=== PATIENT | female | born 1955 | race Caucasian/White ===

== ENCOUNTER 2024-03-23 20:42 | Outpatient (REF) | payer OTHER, SELFPAY ==
[2024-03-28 14:10] LABS: Age Gdln ACOG Testing Note (.); Pap IG (Image Guided) Note (.)
== END 2024-03-23 20:43 | disposition home or self-care (01) ==
LOC: LAB 20:42
PROVIDERS: PCP Family Medicine; Visit Provider Physician Assistant
DX: Z01.419 Encounter for gynecological examination (general) (routine) without abnormal findings (principal)
CPT/HCPCS: 88175

== ENCOUNTER 2024-03-31 15:12 | Outpatient (REF) | payer OTHER, SELFPAY | END 2024-03-31 15:13 | disposition home or self-care (01) | LOC: LAB 15:12 | PROVIDERS: PCP Family Medicine; Visit Provider Obstetrics & Gynecology | DX: N89.8 Other specified noninflammatory disorders of vagina (principal); C51.9 Malignant neoplasm of vulva, unspecified | CPT/HCPCS: 88305; 88341; 88342; 88360 ==